=== PATIENT | female | born 1995 ===

== ENCOUNTER 2017-07-14 00:37 | Emergency (ER) | payer MEDICAID ==
[2017-07-14 00:48] VITALS: BP 115/67; PULSE 98; RESP 18; TEMP 98.5; O2SAT 98
--- NOTE | 2017-07-14 01:20 | ED PDOC ---
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 She is requesting to have finger nail clipped. Patient denies other complains. (Clifton Diaz) Past Medical History - Provider Review Nursing Documentation Reviewed: Yes - Infectious Disease Hx of Infectious Diseases: None - Psychiatric Hx Substance Use: No - Anesthesia Hx Anesthesia: No <Clifton Diaz - Last Filed: 07/14/17 01:36> Family/Social History - Physician Review Nursing Documentation Reviewed: Yes Family/Social History: Other (noncontributory) Smoking Status: Hookah Hx Alcohol Use: No Hx Substance Use: No <Clifton Diaz - Last Filed: 07/14/17 01:36> Allergies/Home Meds <Clifton Diaz - Last Filed: 07/14/17 01:36> <Epifanio Cee - Last Filed: 07/14/17 01:50> Allergies/Adverse Reactions: Allergies No Known Allergies Allergy (Verified 07/14/17 00:47) Home Medications: Home Meds Medication Instructions Recorded Confirmed No Known Home Med 07/14/17 07/14/17 Review of Systems - Review of Systems Constitutional: Normal. absent: Fatigue, Weight Change, Fevers Eyes: Normal ENT: Normal Respiratory: Normal Cardiovascular: Normal Gastrointestinal: Normal Genitourinary Female: Normal Musculoskeletal: Other (see hpi) Skin: Normal Neurological: Normal Endocrine: Normal Hemo/Lymphatic: Normal Psychiatric: Normal <Clifton Diaz - Last Filed: 07/14/17 01:36> Physical Exam Temperature: Afebrile Blood Pressure: Normal Pulse: Regular Respiratory Rate: Normal Appearance: Positive for: Well-Appearing, Non-Toxic, Comfortable Pain Distress: None Mental Status: Positive for: Alert and Oriented X 3 - Systems Exam Head: Present: Atraumatic, Normocephalic Pupils: Present: PERRL Extroacular Muscles: Present: EOMI Conjunctiva: Present: Normal Mouth: Present: Moist Mucous Membranes Neck: Present: Normal Range of Motion. No: Meningeal Signs Back: Present: Normal Inspection. No: CVA Tenderness Upper Extremity: Present: Normal ROM, NORMAL PULSES, Neurovascularly Intact, Capillary Refill < 2s, Other (left 3rd finger nail injury). No: Cyanosis, Edema Lower Extremity: Present: Normal Inspection. No: Edema Neurological: Present: GCS=15, CN II-XII Intact, Speech Normal Skin: Present: Warm, Dry, Normal Color. No: Rashes Psychiatric: Present: Alert, Oriented x 3, Normal Insight, Normal Concentration <Clifton Diaz - Last Filed: 07/14/17 01:36> Vital Signs Temp Pulse Resp BP Pulse Ox 07/14/17 00:42 98.5 F 98 H 18 115/67 98 Medical Decision Making Re-evaluation Time: 01:37 Reassessment Condition: Re-examined, Improved <Clifton Diaz - Last Filed: 07/14/17 01:36> <Epifanio Cee - Last Filed: 07/14/17 01:50> ED Course and Treatment: 07/14/17 01:37 Re-evaluation. Patient feels better. Discussed results and plan with patient who expresses understanding. All questions answered and there is agreement with the plan to discharge home with instructions. Patient stable for discharge. Return if symptoms persist or worsen. (Clifton Diaz) - PA / [employer] / Resident Statement KEVIN has reviewed & agrees with the documentation as recorded. KEVIN has examined the patient and agrees with the treatment plan. <Epifanio Cee - Last Filed: 07/14/17 01:50> Disposition/Present on Arrival - Present on Arrival Any Indicators Present on Arrival: No History of DVT/PE: No History of Uncontrolled Diabetes: No Urinary Catheter: No History of Decub. Ulcer: No History Surgical Site Infection Following: None - Disposition Have Diagnosis and Disposition been Completed?: Yes Disposition Time: 01:37 Patient Plan: Discharge <Clifton Diaz - Last Filed: 07/14/17 01:36> <Epifanio Cee Last Filed: 07/14/17 01:50> - Disposition Diagnosis: Nail avulsion, finger Disposition: HOME/ ROUTINE Patient Problems: Current Active Problems Problem Status Onset Nail avulsion, finger Acute Condition: GOOD Discharge Instructions (ExitCare): Nail Avulsion (ED) Additional Instructions: Call private doctor for follow up visit in 1-2 days. Take medication as instructed. return to emergency if symptoms worsen or wound becomes infected. Clean wound daily with soap and water. Do not use peroxide. or alcohol Referrals: Diana Spencer MD [Primary Care Provider] - Follow up with primary Forms: [employer] (Slovak)
== END 2017-07-14 01:52 | disposition home or self-care (01) ==
LOC: ED 00:37
DX: S61.303A Unspecified open wound of left middle finger with damage to nail, initial encounter (principal); X50.1XXA Overexertion from prolonged static or awkward postures, initial encounter

== ENCOUNTER 2018-02-25 18:27 | Emergency (ER) | payer MEDICAID ==
[2018-02-25 18:32] VITALS: BMI 33.0
[2018-02-25 18:33] VITALS: O2SAT 100
[2018-02-25] MEDS ORDERED: DiphenhydrAMINE 50 mg/ml Inj ONE (19:17)
--- NOTE | 2018-02-25 19:56 | ED PDOC ---
Arrival/HPI - General Chief Complaint: GI Problem Time Seen by Provider: 02/25/18 19:02 Historian: Patient - History of Present Illness Narrative History of Present Illness (Text): 02/25/18 19:51 Pt is a 22 yr old female who presents with lower abdominal pain with nausea and diarrhea for the past 2 days. Pt says she has explosive diarrhea and abdominal pain that comes on strong and severe intermittently but denies fever, chills, sob, cp, GIB or . LMP wks ago with 14 days of bleeding with clots and cramping. Reports elective at 3 wks [place] 4 months ago. Has felt weak and tired since that time. was told to f/u with inside wireman after but never did. Time/Duration: 24 hours Symptom Onset: Sudden Symptom Course: Intermittent Quality: Pressure Past Medical History - Provider Review Nursing Documentation Reviewed: Yes - Travel History Have you recently traveled outside [place] w/in the past 3 mons?: No - Infectious Disease Hx of Infectious Diseases: None - Psychiatric Hx Substance Use: No - Anesthesia Hx Anesthesia: No Hx Anesthesia Reactions: No Hx Malignant Hyperthermia: No Family/Social History - Physician Review Nursing Documentation Reviewed: Yes Family/Social History: No Known Family HX Smoking Status: Never Smoked Hx Alcohol Use: No Hx Substance Use: No Allergies/Home Meds Allergies/Adverse Reactions: Allergies No Known Allergies Allergy (Verified 07/14/17 00:47) Home Medications: Home Meds Medication Instructions Recorded Confirmed Levonorgestrel-Ethin Estradiol 1 tab PO DAILY 02/25/18 02/25/18 [Falmina-28 Tablet] Review of Systems - Review of Systems Constitutional: Fatigue, Fevers Eyes: Normal ENT: Normal Respiratory: Normal. absent: SOB, Cough Cardiovascular: Normal. absent: Chest Pain Gastrointestinal: Abdominal Pain, Stool Changes, Diarrhea, Nausea, Appetite Changes Genitourinary Female: Normal Musculoskeletal: Normal Skin: Normal Neurological: Normal. absent: Headache Endocrine: Normal Hemo/Lymphatic: Normal Psychiatric: Normal Physical Exam Vital Signs Reviewed: Yes Vital Signs Temp Pulse Resp BP Pulse Ox 02/25/18 21:59 98.1 F 75 17 115/78 100 02/25/18 18:33 97.9 F 73 18 113/69 100 Temperature: Afebrile Blood Pressure: Normal Pulse: Regular Respiratory Rate: Normal Appearance: Positive for: Well-Appearing, Non-Toxic, Comfortable Pain Distress: None Mental Status: Positive for: Alert and Oriented X 3 - Systems Exam Head: Present: Atraumatic, Normocephalic Pupils: Present: PERRL Extroacular Muscles: Present: EOMI Conjunctiva: Present: Normal Mouth: Present: Moist Mucous Membranes Neck: Present: Normal Range of Motion Respiratory/Chest: Present: Clear to Auscultation, Good Air Exchange. No: Respiratory Distress, Accessory Muscle Use Cardiovascular: Present: Regular Rate and Rhythm, Normal S1, S2. No: Murmurs Abdomen: Present: Normal Bowel Sounds. No: Tenderness, Distention, Peritoneal Signs, Rebound, Guarding, McBurney's Point Tender, Rovsing's Sign Present Back: Present: Normal Inspection. No: CVA Tenderness Upper Extremity: Present: Normal Inspection. No: Cyanosis, Edema Lower Extremity: Present: Normal Inspection, Capillary Refill < 2 s. No: Edema Neurological: Present: GCS=15, CN II-XII Intact, Speech Normal, Motor Func Grossly Intact, Normal Sensory Function Skin: Present: Warm, Dry, Normal Color. No: Rashes Psychiatric: Present: Alert, Oriented x 3, Normal Insight, Normal Concentration Medical Decision Making ED Course and Treatment: 02/25/18 19:56 Impression Pt is a 22 yr old female who presents with lower abdominal pain with nausea and diarrhea for the past 2 days. No sig findings on exam; belly soft and non tender, BS Plan Labs, UA beta hcg pelvis US intravaginal assess and dspo Progress note 02/25/18 21:31 EXAM: US Pelvis Complete, Transabdominal US Pelvis, Transvaginal CLINICAL HISTORY: 22 years old, female; Pain; Abdominal pain; Lower abdomen; Additional info: Menorrhagia and abdominal pain TECHNIQUE: Real-time transabdominal and transvaginal pelvic ultrasound (complete) with image documentation. Transvaginal imaging was used for better evaluation of the endometrium and adnexa. COMPARISON: No relevant prior studies available. FINDINGS: Uterus/cervix: Uterus measures 6.7 x 3.2 x 3.9 cm cm in size. No myometrial mass. Endometrium: 0.4 cm in thickness. Right ovary: 1.5 x 2.0 x 1.4 cm in size. No mass. Normal flow. Left ovary: 2.0 x 2.2 x 1.3 cm in size. Small follicles. Normal flow. Free fluid: No significant free fluid. Bladder: Unremarkable as visualized. IMPRESSION: 1. No acute findings. 2. Non-acute findings are described above. 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 Return to ED if fever and severe pain - Lab Interpretations Lab Results: 02/25/18 20:58 02/25/18 20:58 Lab Results 02/25/18 20:58: Beta HCG, Quant < 2.39 02/25/18 20:58: Sodium 142, Potassium 4.0, Chloride 106, Carbon Dioxide 25, Anion Gap 15, BUN 15, Creatinine 1.0, Est GFR ( Amer) > 60, Est GFR (Non- Af Amer) > 60, Random Glucose 66 L, Calcium 8.7, Total Bilirubin 0.8, AST 20, ALT 28, Alkaline Phosphatase 52, Total Protein 6.9, Albumin 4.0, Globulin 2.9, Albumin/Globulin Ratio 1.4 02/25/18 20:58: Urine Color Yellow, Urine Appearance Clear, Urine pH 6.0, Ur Specific [place] 1.025, Urine Protein Negative, Urine Glucose (UA) Negative, Urine Ketones Trace H, Urine Blood Negative, Urine Nitrate Negative, Urine Bilirubin Negative, Urine Urobilinogen 0.2, Ur Leukocyte Esterase Negative 02/25/18 20:58: WBC 6.7, RBC 4.72, Hgb 14.1, Hct 41.4, MCV 87.7, MCH 29.9, MCHC 34.1, RDW 12.8, Plt Count 310, MPV 10.1, Gran % 50.2, Lymph % (Auto) 34.8, Holt % (Auto) 6.8 H, Eos % (Auto) 7.7 H, Baso % (Auto) 0.5, Gran # 3.35, Lymph # ( Auto) 2.3, Holt # (Auto) 0.5, Eos # (Auto) 0.5, Baso # (Auto) 0.03 - RAD Interpretation Narrative RAD Interpretations (Text): 02/25/18 21:32 EXAM: US Pelvis Complete, Transabdominal US Pelvis, Transvaginal CLINICAL HISTORY: 22 years old, female; Pain; Abdominal pain; Lower abdomen; Additional info: Menorrhagia and abdominal pain TECHNIQUE: Real-time transabdominal and transvaginal pelvic ultrasound (complete) with image documentation. Transvaginal imaging was used for better evaluation of the endometrium and adnexa. COMPARISON: No relevant prior studies available. FINDINGS: Uterus/cervix: Uterus measures 6.7 x 3.2 x 3.9 cm cm in size. No myometrial mass. Endometrium: 0.4 cm in thickness. Right ovary: 1.5 x 2.0 x 1.4 cm in size. No mass. Normal flow. Left ovary: 2.0 x 2.2 x 1.3 cm in size. Small follicles. Normal flow. Free fluid: No significant free fluid. Bladder: Unremarkable as visualized. IMPRESSION: 1. No acute findings. 2. Non-acute findings are described above. Radiology Orders: 02/25/18 20:13 TRANSVAGINAL [US] Stat Disposition/Present on Arrival - Present on Arrival Any Indicators Present on Arrival: Yes History of DVT/PE: No History of Uncontrolled Diabetes: No Urinary Catheter: No History of Decub. Ulcer: No History Surgical Site Infection Following: None - Disposition Have Diagnosis and Disposition been Completed?: Yes Diagnosis: Gastroenteritis, Diarrhea Disposition: HOME/ ROUTINE Disposition Time: 21:46 Patient Plan: Discharge Condition: STABLE Discharge Instructions (ExitCare): Diarrhea in Adolescents and Adults, Gastroenteritis (ED) Additional Instructions: LADY NEREIDA TORRES, thank you for letting us take care of you today. Your provider was Rickie Aguilar MD and you were treated for STOMACH PAIN. The emergency medical care you received today was directed at your acute symptoms. If you were prescribed any medication, please fill it and take as directed. It may take several days for your symptoms to resolve. Return to the Emergency Department if your symptoms worsen, do not improve, or if you have any other problems. Please see your inside wireman for evaluation. See your Primary Doctor if your current symptoms persist or worsen. Take the Imodium only if the diarrhea becomes excessively frequent while at work. Please contact your doctor or call one of the physicians/clinics you have been referred to that are listed on the Patient Visit Information form that is included in your discharge packet. Bring any paperwork you were given at discharge with you along with any medications you are taking to your follow up visit. Our treatment cannot replace ongoing medical care by a primary care provider outside of the emergency department. Thank you for allowing the [facility] team to be part of your care today. If you had an X-Ray or CT scan: A Radiologist will review the ED reading if any change in treatment is needed we will contact you. If you had a blood, urine, or wound culture: It will take several days for the results, if any change in treatment is needed we will contact you. If you had an STI test: It will take 48 hours for the results. Please call after 1 week if you have not heard back. Prescriptions: Loperamide [Loperamide HCl] 2 mg PO Q12 5 Days #10 cap Referrals: Diana Spencer MD [Primary Care Provider] - Follow up with primary Forms: [employer] (Croatian), WORK NOTE
--- NOTE | 2018-02-25 21:09 | US ---
EXAM: US Pelvis Complete, Transabdominal US Pelvis, Transvaginal CLINICAL HISTORY: 22 years old, female; Pain; Abdominal pain; Lower abdomen; Additional info: Menorrhagia and abdominal pain TECHNIQUE: Real-time transabdominal and transvaginal pelvic ultrasound (complete) with image documentation. Transvaginal imaging was used for better evaluation of the endometrium and adnexa. COMPARISON: No relevant prior studies available. FINDINGS: Uterus/cervix: Uterus measures 6.7 x 3.2 x 3.9 cm cm in size. No myometrial mass. Endometrium: 0.4 cm in thickness. Right ovary: 1.5 x 2.0 x 1.4 cm in size. No mass. Normal flow. Left ovary: 2.0 x 2.2 x 1.3 cm in size. Small follicles. Normal flow. Free fluid: No significant free fluid. Bladder: Unremarkable as visualized. IMPRESSION: 1.No acute findings. 2.Non-acute findings are described above.
[2018-02-25 21:10] LABS: BASO # 0.03 K/mm3 (0.0-2.0); BASO % 0.5 % (0.0-3.0); EOS # 0.5 (0.0-0.7); EOS % 7.7 % (1.5-5.0); GRAN # 3.35 (1.4-6.5); GRAN % 50.2 % (50.0-68.0); HEMOGLOBIN 14.1 g/dL (12.0-16.0); LYMPH # 2.3 (1.2-3.4); LYMPH % 34.8 % (22.0-35.0); MEAN CELL VOLUME 87.7 fl (80.0-105.0); MEAN CORPUSCULAR HEMOGLOBIN 29.9 pg (25.0-35.0); MEAN CORPUSCULAR HGB CONC 34.1 g/dl (31.0-37.0); MEAN PLATELET VOLUME 10.1 fl (7.0-11.0); MONO # 0.5 (0.1-0.6); MONO % 6.8 % (1.0-6.0); RBC 4.72 10^6/uL (3.5-6.1); RED CELL DISTRIBUTION WIDTH 12.8 % (11.5-14.5); URINE BILIRUBIN NEGATIVE (NEGATIVE); URINE BLOOD NEGATIVE (NEGATIVE); URINE GLUCOSE (UA) NEGATIVE (NEGATIVE); URINE LEUKOCYTE ESTERASE NEGATIVE Leu/uL (NEGATIVE); URINE PROTEIN NEGATIVE mg/dL (<30 mg/dL); URINE UROBILINOGEN 0.2 E.U./dL (<1 E.U./dL); WHITE BLOOD COUNT 6.7 10^3/ul (4.5-11.0)
[2018-02-25 21:13] LABS: URINE APPEARANCE CLEAR (CLEAR); URINE COLOR YELLOW (YELLOW)
[2018-02-25 21:21] LABS: ALB/GLOB RATIO 1.4 (1.1-1.8); ALT/SGPT 28 U/L (7-56); AST/SGOT 20 U/L (14-36); BLOOD UREA NITROGEN 15 mg/dL (7-21); CALCIUM 8.7 mg/dL (8.4-10.5); GFR AFRICAN-AMERICAN > 60; GFR NON-AFRICAN AMERICAN > 60
[2018-02-25 21:59] VITALS: BP 115/78; PULSE 75; RESP 17; TEMP 98.1
== END 2018-02-25 21:59 | disposition home or self-care (01) ==
LOC: ED 18:27
DX: K52.9 Noninfective gastroenteritis and colitis, unspecified (principal)